=== PATIENT | female | born 1995 | race Two or more races ===

== ENCOUNTER 2022-02-07 09:57 | Outpatient (CLI) | payer OTHER | END 2022-02-07 11:25 | disposition home or self-care (01) | LOC: PRENATAL 09:57 | PROVIDERS: ATTEND Obstetrics & Gynecology Maternal & Fetal Medicine | DX: O36.80X0 Pregnancy with inconclusive fetal viability, not applicable or unspecified (principal); Z36.0 Encounter for antenatal screening for chromosomal anomalies; Z3A.12 12 weeks gestation of pregnancy ==

== ENCOUNTER 2022-04-02 07:59 | Outpatient (CLI) | payer OTHER | END 2022-04-02 09:15 | disposition home or self-care (01) | LOC: PRENATAL 07:59 | PROVIDERS: ATTEND Obstetrics & Gynecology Maternal & Fetal Medicine | DX: O35.0XX0 Maternal care for (suspected) central nervous system malformation in fetus, not applicable or unspecified (principal); O35.3XX0 Maternal care for (suspected) damage to fetus from viral disease in mother, not applicable or unspecified; Z3A.20 20 weeks gestation of pregnancy ==

== ENCOUNTER 2022-06-13 22:10 | Inpatient (IN) | payer OTHER ==
[~2022-06-13] VITALS: Ht 160 cm; Wt 0.9 kg
[~2022-06-13 22:10] MED LIST: B12 ACTIVE1000 MCG PO; PRENATABS RX T1 EACH PO
== END 2022-06-17 12:10 | disposition home or self-care (01) | DRG 805 ==
LOC: OBS/DEL 22:10 → OB/GYN 06-14 01:17 → LDR 06-14 01:17 → OB/GYN 06-15 09:50
PROVIDERS: ADMIT Obstetrics & Gynecology; ATTEND Obstetrics & Gynecology
PROC: 10E0XZZ Delivery of Products of Conception, External Approach (ICD-10-PCS; principal; 2022-06-14)
PROC: 4A1HXFZ Monitoring of Products of Conception, Cardiac Rhythm, External Approach (ICD-10-PCS; 2022-06-14)
DX: O42.113 Preterm premature rupture of membranes, onset of labor more than 24 hours following rupture, third trimester (principal); O60.14X0 Preterm labor third trimester with preterm delivery third trimester, not applicable or unspecified; Z37.0 Single live birth; Z3A.30 30 weeks gestation of pregnancy; O62.2 Other uterine inertia; O26.893 Other specified pregnancy related conditions, third trimester; Z67.11 Type A blood, Rh negative